=== PATIENT | male | born 1990 | race Caucasian/White ===

== ENCOUNTER 2016-06-11 22:06 | Emergency (ER) | payer OTHER ==
[2016-06-11] MEDS ORDERED: Octyl 2-Cyanoacrylate 1 APPLIC TUBE TOP ONE (22:29)
[2016-06-11] MEDS ORDERED: Octyl 2-Cyanoacrylate 1 Tube TOP ONE (22:37)
[2016-06-11] MEDS ORDERED: Diphtheria,Pertussis(Acell),Tetanus Vaccine 0.5 ML Syringe IM ONE (23:06)
--- NOTE | 2016-06-11 23:10 | EDM.PDOC ---
ED HPI Skin/Rash - General Chief Complaint: Laceration Stated Complaint: INFECTION LT HAND/KNUCKLE Time Seen by Provider: 06/11/16 22:30 Source: Reports: Patient History Limitations: Reports: No limitations - History of Present Illness INITIAL COMMENTS - FREE TEXT/NARRATIVE: HISTORY AND PHYSICAL: History of present illness: 26-year-old male status post laceration on the back of his left hand from some sheet metal. Denies possibility foreign body. Normal use and range of motion of his hand. Tetanus needed.] Injury happened about 6 hours ago and patient irrigated immediately and multiple times since tapwater Review of systems: As per history of present illness and below otherwise all systems reviewed and negative. Past medical history: As per history of present illness and as reviewed below otherwise noncontributory. Surgical history: As per history of present illness and as reviewed below otherwise noncontributory. Social history: No reported history of drug or alcohol abuse. Family history: As per history of present illness and as reviewed below otherwise noncontributory. Physical exam: 1.5 cm lack dorsum of left hand over MCP joint no tendon involvement no gross contamination. 0.75 cm laceration over left hand metacarpophalangeal distribution no tendon involvement. Normal strength sensation and range of motion against resistance in flexion and extension. Neurovascularly intact distally no evidence of tendon compromise HEENT: Normocephalic, atraumatic, pupils normal and symmetrical, supple neck, no meningismus, normal color Lungs: Normal and symmetrical chest wall excursion bilateral with no tachypnea or increased work of breathing, grossly normal chest exam Heart: No tachycardia in triage Abdomen: Normal-appearing, nondistended, no visible mass or asymmetry Pelvis: Normal-appearing Genitourinary: Deferred Rectal exam: Deferred Extremities: Atraumatic, normal use and range of motion, no visible evidence of gross neurovascular compromise Neuro: Awake, alert, oriented. Normal and appropriate mental status. Cranial nerves grossly unremarkable. Motor function normal. Nonfocal neurologic exam. Diagnostics: [] Therapeutics: [Tetanus given] Impression: [Laceration Dermabond repair] Plan: [Patient irrigated extensively with hyaline tapwater sondra for 5 minutes. Dermabond repair performed with good approximation and hemostasis. Patient tolerated well without complications. Is worthwhile with PCP in 2 days for wound check and return immediately for signs of infection Definitive disposition and diagnosis as appropriate pending reevaluation and review of above. - Related Data Allergies Allergy/AdvReac Type Severity Reaction Status Date / Time No Known Allergies Allergy Verified 06/11/16 22:29 Home Meds: Ambulatory Orders Medication Instructions Recorded Confirmed . [No Known Home Meds] 06/11/16 06/11/16 Past Medical History - Past Health History Medical/Surgical History: Denies Medical/Surgical History Social & Family History - Family History Family Medical History: Noncontributory - Tobacco Use Smoking Status *Q: Former Smoker Used Tobacco, but Quit: Yes Month Tobacco Last Used: unknown - Caffeine Use Caffeine Use: Reports: Coffee - Recreational Drug Use Recreational Drug Use: No ED ROS GENERAL - Review of Systems Review Of Systems: See Below (Per history of present illness) ED EXAM, SKIN/RASH Exam: See Below (Per history of present illness) Course - Vital Signs Last Recorded V/S: Last Vital Signs Temp 37.2 C 06/11/16 22:23 Pulse 62 06/11/16 23:25 Resp 17 06/11/16 23:25 BP 136/76 06/11/16 23:25 Pulse Ox 97 06/11/16 23:25 - Orders/Labs/Meds Orders: Active Orders 24 hr Category Date Time Status Vaccines to be Administered [RC] PER UNIT ROUTINE Care 06/11/16 23:06 Active Meds: Medications Discontinued Medications Generic Name Dose Route Start Last Admin Trade Name Luis Eq PRN Reason Stop Dose Admin Diphtheria/Tetanus/Acell Pertussis 0.5 ml 06/11/16 23:06 06/11/16 23:12 Adacel IM 06/11/16 23:07 0.5 ml .ONCE ONE Administration Octyl Cyanoacrylate 1 applic 06/11/16 22:29 06/11/16 22:38 Dermabond Mini TOP 06/11/16 22:30 Not Given ONETIME ONE Octyl Cyanoacrylate 1 applic 06/11/16 22:37 06/11/16 22:41 Dermabond Advance TOP 06/11/16 22:38 1 applic ONETIME ONE Administration Departure - Departure Time of Disposition: 23:06 Disposition: Home, Self-Care 01 Condition: good Clinical Impression: Laceration Instructions: Laceration Care, Adult, [id number] Referrals: PCP,None [Primary Care Provider] - Forms: ED Department Discharge Additional Instructions: Your laceration has been repaired with wound adhesive. Do not apply any ointment , Scratch or scrub it. Try to be careful of your hand while it is healing. Your tetanus is been updated including pertussis (whooping cough )coverage. Will be good for 5 years. Take Motrin or Tylenol as needed for pain. Followup with your Dr. in 2 days for wound check and return for signs of infection - My Orders Last 24 Hours: My Active Orders 06/11/16 23:06 Vaccines to be Administered [RC] PER UNIT ROUTINE - Assessment/Plan Last 24 Hours: My Active Orders 06/11/16 23:06 Vaccines to be Administered [RC] PER UNIT ROUTINE
[2016-06-11 23:29] VITALS: BP 136/76
== END 2016-06-11 23:27 | disposition home or self-care (01) ==
LOC: MW.ED 22:06
DX: S61.412A Laceration without foreign body of left hand, initial encounter (principal); Z23 Encounter for immunization; Z87.891 Personal history of nicotine dependence; W45.8XXA Other foreign body or object entering through skin, initial encounter; Y92.69 Other specified industrial and construction area as the place of occurrence of the external cause; Y99.0 Civilian activity done for income or pay
CPT/HCPCS: 12001; 90471; 90715; 99282; A9270